=== PATIENT | female | born 1965 | race Asian ===

== ENCOUNTER 2017-01-16 17:00 | Outpatient (CLI) | payer BC ==
[~2017-01-16 17:00] MED LIST: CIPRO500 MG PO; LOSA50TA PO; OMEPRAZOLE40 MG OR; VALTREX500 MG PO
== END 2017-01-16 19:34 | disposition home or self-care (01) ==
LOC: LAB 17:00
DX: N39.0 Urinary tract infection, site not specified (principal)
CPT/HCPCS: 87077; 87086; 87088; 87186

== ENCOUNTER 2017-03-06 16:03 | Outpatient (CLI) | payer BC | END 2017-03-06 19:24 | disposition home or self-care (01) | LOC: RAD 16:03 | DX: M25.521 Pain in right elbow (principal) ==

== ENCOUNTER 2017-04-04 21:57 | Emergency (ER) | payer BC ==
[~2017-04-04] VITALS: Ht 170.2 cm; Wt 72.6 kg
[2017-04-04 22:37] LABS: PLATELET COUNT 266 K/uL (152-353)
[2017-04-04 22:46] LABS: POTASSIUM 3.5 mmol/L (3.6-5.2); SODIUM 137 mmol/L (136-145)
[2017-04-04 23:42] VITALS: BP 138/66; TEMP 98.6
== END 2017-04-04 23:46 | disposition home or self-care (01) ==
LOC: ED 21:57
DX: I10 Essential (primary) hypertension (principal)
CPT/HCPCS: 36415; 80053; 85027; 93005; 99283

== ENCOUNTER 2017-08-22 21:33 | Emergency (ER) | payer BC ==
[~2017-08-22] VITALS: Ht 170.2 cm; Wt 76.7 kg
[2017-08-22] MEDS ORDERED: PREDNISONE20 MG PO (21:52)
[2017-08-22] MEDS ORDERED: CEFTIN250 MG PO (21:53)
[2017-08-22] MEDS ORDERED: ALLE (21:54)
[2017-08-22 22:47] LABS: PLATELET COUNT 311 K/uL (152-353)
[2017-08-22 22:51] LABS: POTASSIUM 3.8 mmol/L (3.6-5.2)
[2017-08-22 23:43] VITALS: BP 148/76; TEMP 97.5
== END 2017-08-22 23:30 | disposition home or self-care (01) ==
LOC: ED 21:33
DX: J31.0 Chronic rhinitis (principal)
CPT/HCPCS: 80053; 85027; 96372; 99283; J1885

== ENCOUNTER 2018-08-16 21:37 | Emergency (ER) | payer BC ==
[~2018-08-16] VITALS: Ht 170.2 cm; Wt 70.3 kg
[~2018-08-16 21:37] MED LIST changes: +ALLE; +CEFTIN250 MG PO; +PREDNISONE20 MG PO
[2018-08-16 23:00] VITALS: BP 146/94; TEMP 97.8
== END 2018-08-16 23:01 | disposition home or self-care (01) ==
LOC: ED 21:37
DX: I10 Essential (primary) hypertension (principal); R51 Headache; R42 Dizziness and giddiness
CPT/HCPCS: 99282